=== PATIENT | male | born 2000 | race Caucasian/White ===

== ENCOUNTER 2021-05-16 22:24 | Emergency (ER) | payer MEDICAID ==
[~2021-05-16] VITALS: Ht 170.2 cm; Wt 56.7 kg
[2021-05-17 00:39] VITALS: BP 140/90
[2021-05-17] MEDS ORDERED: HYDROcodone-ACET 10/325MG TAB PO ONE (00:45)
[2021-05-17] MEDS ORDERED: DexAMETHasone SOD PHOS 10MG/1ML VIAL INJ IM ONE (00:45)
[2021-05-17] MEDS ORDERED: PRED20TA2 PO (01:06)
== END 2021-05-17 01:07 | disposition home or self-care (01) ==
LOC: ER 22:28
DX: K04.7 Periapical abscess without sinus (principal)
CPT/HCPCS: 96372; 99283; J1100